=== PATIENT | male | born 1950 | race Caucasian/White ===

== ENCOUNTER 2018-11-25 02:43 | Emergency (ER) | payer MEDICARE, OTHER | END 2018-11-25 05:56 | disposition home or self-care (01) | LOC: ER 02:43 ==

== ENCOUNTER 2020-04-22 05:31 | Outpatient (RCR) | payer MEDICARE, OTHER ==
[~2020-04-22] VITALS: Ht 177.8 cm; Wt 140.0 kg
[~2020-04-22 05:31] MED LIST: ALBU2.5V4 IH; AZIT500T PO; BENZ100C18 PO; CEFD300C3 PO; GUAI1TBM19 PO; METH4TAB PO; METO50TA15 PO; MULT-301 PO; OXYC1TAB11 PO
[2020-04-22 09:36] LABS: BASOPHILS # (AUTO) 0.1 10^3/uL (0.0-0.1); BASOPHILS % (AUTO) 1 % (0-10); EOSINOPHILS # (AUTO) 0.3 10^3/uL (0.0-0.3); EOSINOPHILS % (AUTO) 5 % (0-10); HEMATOCRIT 45 % (40-54); HEMOGLOBIN 14.9 g/dL (13.3-17.7); LYMPHOCYTES # (AUTO) 2.2 10^3/uL (1.0-4.0); LYMPHOCYTES % (AUTO) 29 % (12-44); MEAN CORPUSCULAR HEMOGLOBIN 31 pg (25-34); MEAN CORPUSCULAR HGB CONC 33 g/dL (32-36); MEAN CORPUSCULAR VOLUME 93 fL (80-99); MEAN PLATELET VOLUME 10.9 fL (9.0-12.2); MONOCYTES # (AUTO) 0.4 10^3/uL (0.0-1.0); MONOCYTES % (AUTO) 6 % (0-12); NEUTROPHILS # (AUTO) 4.3 10^3/uL (1.8-7.8); NEUTROPHILS % (AUTO) 58 % (42-75); PLATELET COUNT 184 10^3/uL (130-400); WHITE BLOOD COUNT 7.4 10^3/uL (4.3-11.0)
[2020-04-22 09:43] LABS: POTASSIUM 3.8 MMOL/L (3.6-5.0)
[2020-04-22 09:45] VITALS: BP 148/90
[2020-04-22 09:49] LABS: CREATININE SERUM 1.26 MG/DL (0.60-1.30)
--- NOTE | 2020-04-22 09:51 | Diagnostic Imaging Report ---
INDICATION: Preop left periauricular lesion excision. FINDINGS: The borderline cardiomegaly noted on the prior exam of 11/25/2018 is again evident and not significantly changed. The tortuous descending thoracic aorta noted previously is also no different on this exam. The lungs remain clear. There is no sign of failure, pneumonia or pleural effusion. The mediastinum is not widened. The osseous structures are intact. IMPRESSION: There is no evidence for active disease. Dictated by: Dictated on workstation # [id number]
[2020-04-22] MEDS ORDERED: ASCO100099 PO (10:57)
[2020-04-22] MEDS ORDERED: METO100T12 PO (10:57)
[2020-04-22] MEDS ORDERED: MULT-1136 PO (10:57)
[2020-04-22] MEDS ORDERED: FENO145T26 PO (10:57)
[2020-04-22] MEDS ORDERED: TRIA1CAP4 PO (10:57)
== END 2020-04-22 10:58 | disposition home or self-care (01) ==
LOC: PREOP 05:31
PROVIDERS: ATTEND Otolaryngology Otolaryngology/Facial Plastic Surgery
DX: Z01.818 Encounter for other preprocedural examination (principal); H61.892 Other specified disorders of left external ear
CPT/HCPCS: 71046; 80048; 85025; 87081; 93005; U0002; 36415; 87635

== ENCOUNTER 2020-04-25 08:34 | Day surgery (SDC) | payer MEDICARE, OTHER ==
[2020-04-25] VITALS (10 sets, daily range): BP systolic 128–184; BP diastolic 75–105
[~2020-04-25] VITALS: Ht 177.8 cm; Wt 140.0 kg
[~2020-04-25 08:34] MED LIST changes: +ASCO100099 PO; +FENO145T26 PO; +METO100T12 PO; +MULT-1136 PO; +TRIA1CAP4 PO
[2020-04-25] MEDS ORDERED: LIDOCAINE/EPI 1%-1:100,000 (XYLOCAINE) 50 ML ONE (08:35)
[2020-04-25] MEDS ORDERED: MUPIROCIN 2% OINT 22 GM (BACTROBAN) TUBE ONE (08:35)
[2020-04-25] MEDS ORDERED: BSS 15 ML ONE (08:35)
[2020-04-25] MEDS ORDERED: fentaNYL INJECTION 100 MCG/2 ML AMP ONE (08:45)
[2020-04-25] MEDS ORDERED: MIDAZOLAM 2 MG/2 ML (VERSED) VIAL ONE (08:45)
--- NOTE | 2020-04-25 08:46 | Progress Note-Pre Operative ---
Pre-Operative Progress Note H&P Reviewed The H&P was reviewed, patient examined and no changes noted. Date Seen by Provider: Apr 25, 2020 Time Seen by Provider: 08:45 Date H&P Reviewed: Apr 25, 2020 Time H&P Reviewed: 08:45 Pre-Operative Diagnosis: Left Pre-Auricular Lesion MIKE ZAVALA MD Apr 25, 2020 08:46
--- NOTE | 2020-04-25 08:47 | Progress Note-Post Operative ---
Post-Operative Progess Note Surgeon (s)/Hobbing Machine Operator (s) Surgeon MIKE ZAVALA MD Hobbing Machine Operator n/a Pre-Operative Diagnosis Left Pre-Auricular Lesion Post-Operative Diagnosis same Post-Op Procedure Note Date of Procedure: Apr 25, 2020 Name of Procedure Performed: Excision of Left Pre-Auricular Lesion, Reconstruction with Local Advancement Flap Description & Findings Description and Findings: n/a Anesthesia Type gen Estimated Blood Loss minimal Packing none. Specimen(s) collected/removed left pre-auricular lesion to pathology for frozen section MIKE ZAVALA MD Apr 25, 2020 08:47
[2020-04-25] MEDS: LACTATED RINGERS 1,000 ML IV PRN ×2 (08:50→10:03)
[2020-04-25] MEDS ORDERED: LIDOCAINE PF 2% 5 ML (XYLOCAINE) VIAL ONE (08:53)
[2020-04-25] MEDS ORDERED: ONDANSETRON 4 MG/2 ML (SDV) Z0FRAN ONE (08:53)
[2020-04-25] MEDS ORDERED: proPOfol 200 MG/20 ML (DIPRIVAN) VIAL IV ONE (08:53)
[2020-04-25] MEDS ORDERED: SEVOFLURANE (ULTANE) 15 ML INHAL SOLN ONE ×3 (08:53→10:22)
[2020-04-25] MEDS ORDERED: ACETAMINOPHEN 325 MG TABLET PO PRN (09:00)
[2020-04-25] MEDS ORDERED: HYDROcodone/APAP 5 MG/325 MG (LORTAB) TAB PO PRN (09:00)
[2020-04-25] MEDS ORDERED: GLYCOPYRROLATE 0.2 MG/ML (ROBINUL) 2 ML VIAL ONE (10:23)
--- NOTE | 2020-04-25 10:25 | Anesthesia-General Post-Op ---
General Patient Condition Mental Status/LOC: Same as Preop Cardiovascular: Satisfactory Nausea/Vomiting: Absent Respiratory: Satisfactory Pain: Controlled Complications: Absent Post Op Complications Complications None Follow Up Care/Instructions Patient Instructions None needed. Anesthesia/Patient Condition Patient Condition Patient is doing well, no complaints, stable vital signs, no apparent adverse anesthesia problems. No complications reported per nursing. JASMIN MCINTOSH CRNA Apr 25, 2020 10:25
[2020-04-25] MEDS ORDERED: MEPERIDINE (DEMEROL) INJ 50 MG/ML IVP ONE (10:30)
[2020-04-25] MEDS ORDERED: fentaNYL INJECTION 100 MCG/2 ML AMP IVP ONE (10:30)
[2020-04-25] MEDS ORDERED: ONDANSETRON 4 MG/2 ML (SDV) Z0FRAN IVP PRN (10:30)
[2020-04-25] MEDS ORDERED: ACHD5005 PO (11:20)
== END 2020-04-25 12:20 | disposition home or self-care (01) ==
LOC: SDC 08:34
PROVIDERS: ATTEND Otolaryngology Otolaryngology/Facial Plastic Surgery
DX: C44.229 Squamous cell carcinoma of skin of left ear and external auricular canal (principal); I10 Essential (primary) hypertension; E66.01 Morbid (severe) obesity due to excess calories; Z68.41 Body mass index [BMI] 40.0-44.9, adult; Z79.899 Other long term (current) drug therapy